=== PATIENT | female | born 1980 | race Hispanic/Latino ===

== ENCOUNTER 2019-06-15 08:44 | Outpatient (CLI) | payer OTHER ==
--- NOTE | 2019-06-15 09:14 | RAD ---
XR Knee Lt 4 View STANDARD HISTORY: Left anterior knee pain FINDINGS: No fracture or dislocation is identified. Mild degenerative changes are present.
== END 2019-06-15 08:45 | disposition home or self-care (01) ==
LOC: MADRAD 08:44
PROVIDERS: ATTEND Family Medicine
DX: M25.562 Pain in left knee (principal); M17.12 Unilateral primary osteoarthritis, left knee